=== PATIENT | female | born 1985 | race African-American/Black ===

== ENCOUNTER 2016-12-22 00:23 | Emergency (ER) | payer MEDICAID ==
[~2016-12-22 00:23] MED LIST: PRED20 PO; ZYRT10TA12 PO
[2016-12-22 00:24] VITALS: BP 132/79; PULSE 104; RESP 20; TEMP 98.2; O2SAT 99
[2016-12-22 01:20] LABS: BLOOD, URINE NEG (NEG); COMMENT (UR) CULTURE INDICATED; CULTURE IF INDICATED CULTURE INDICATED; GLUCOSE,URINE NEG (NEG); KETONE, URINE TRACE mg/dL (NEG); MUCUS URINE MANY /lpf (OCC); NITRITE,URINE NEG (NEG); SQUAMOUS EPITHELIAL CELL URINE 21 /hpf (0-5); URINE COLOR YELLOW (YELLW/STRAW)
[2016-12-22] MEDS ORDERED: MACR100C2 PO (01:23)
--- NOTE | 2016-12-22 01:23 | PD ---
HPI Chief Complaint: Complaint Time Seen by Provider: 00:47 Travel History International Travel<30 days: No Contact w/Intl Traveler<30days: No Traveled to known affect area: No History of Present Illness HPI 31-year-old female presents with burning when she urinates over the past couple of days. She denies any fever, vomiting, vaginal discharge, vaginal bleeding, back pain or other concurrent complaints. Quality is burning. Severity is with urination. She denies frequent urinary tract infections. PFSH Past Medical History Asthma: Yes Diminished Hearing: No Respiratory: Yes (CHILDHOOD ASTHMA) Influenza Vaccination: No ?: Not LMP: 11/27/2016 : 5 Para: 5 Past Surgical History Surgical History: No Previous Surgery Social History Alcohol Use: No Tobacco Use: No Substance Use: No Allergies-Medications (Allergen,Severity, Reaction): Coded Allergies: No Known Allergies (Unverified , 12/22/16) Reported Meds & Prescriptions Reported Meds & Active Scripts Active Macrobid (Nitrofurantoin Monoh/Nitrofur Macro) 100 Mg Cap 100 Mg PO BID 7 Days Review of Systems Except as stated in HPI: all other systems reviewed are Neg Physical Exam Narrative GENERAL: Well-nourished, well-developed patient. SKIN: Warm and dry. HEAD: Normocephalic and atraumatic. EYES: No injection or drainage. ENT: No nasal drainage noted. NECK: Supple, trachea midline. CARDIOVASCULAR: Regular rate and rhythm RESPIRATORY: No increased effort. No accessory muscle use. GASTROINTESTINAL: Abdomen soft, non-tender, nondistended. NEUROLOGICAL: Awake and alert. Motor and sensory grossly within normal limits. Normal speech. Data Data Last Documented VS Vital Signs Date Time Temp Pulse Resp B/P Pulse Ox O2 Delivery O2 Flow Rate FiO2 12/22/16 00:24 98.2 104 20 132/79 99 Orders Urinalysis - C+S If Indicated (12/22/16 00:48) Ed Urine Pregnancytest Poc (12/22/16 00:48) Urine Culture (12/22/16 01:00) Labs Laboratory Tests Test 12/22/16 01:00 Urine Color YELLOW Urine Turbidity HAZY Urine pH 6.0 Urine Specific [place] 1.029 Urine Protein 30 mg/dL Urine Glucose (UA) NEG mg/dL Urine Ketones TRACE mg/dL Urine Occult Blood NEG Urine Nitrite NEG Urine Bilirubin NEG Urine Urobilinogen 2.0 MG/DL Urine Leukocyte Esterase LARGE Urine WBC 11 /hpf Urine Squamous Epithelial 21 /hpf Cells Urine Mucus MANY /lpf Microscopic Urinalysis Comment CULTURE INDICATED MDM Medical Decision Making Medical Screen Exam Complete: Yes Emergency Medical Condition: Yes Medical Record Reviewed: Yes (past history confirmed) Differential Diagnosis UTI, cyst, Narrative Course Will check UA and test and reevaluate UA with UTI, test negative, all questions answered. Patient knows that follow up is incumbent on them and to return to the emergency room immediately if new or worsening symptoms develop. Patient given strict return precautions, vitals reviewed and are normal, agrees to further workup as an outpatient. Diagnosis Primary Impression: UTI (urinary tract infection) Qualified Code: N39.0 - Urinary tract infection without hematuria, site unspecified Patient Instructions: General Instructions Additional Instructions: return as needed, follow with primary for recheck this week, tylenol as needed for pain Med/Other Pt SpecificInfo: Prescription(s) given Scripts Nitrofurantoin Monohydrate Macrocrystals (Macrobid)100 Mg [id number] Mg PO BID 7 Days Prov:Jesenia Andersen MD 12/22/16 Disposition: DISCHARGE HOME Condition: Stable Jesenia Andersen MD Dec 22, 2016 01:23
== END 2016-12-22 01:39 | disposition home or self-care (01) ==
LOC: NEPC 00:23
DX: N39.0 Urinary tract infection, site not specified (principal); B96.89 Other specified bacterial agents as the cause of diseases classified elsewhere
CPT/HCPCS: 81001; 84703; 87086; 99283

== ENCOUNTER 2017-02-07 12:46 | Emergency (ER) | payer SELFPAY ==
[~2017-02-07] VITALS: Ht 177.8 cm; Wt 85.0 kg
[~2017-02-07 12:46] MED LIST changes: +MACR100C2 PO; -PRED20 PO; -ZYRT10TA12 PO
[2017-02-07 12:47] VITALS: BP 127/85; PULSE 91; RESP 14; TEMP 98.5; O2SAT 99
--- NOTE | 2017-02-07 13:11 | PD ---
HPI Chief Complaint: ENT Complaint Time Seen by Provider: 13:10 Travel History International Travel<30 days: No Contact w/Intl Traveler<30days: No Traveled to known affect area: No History of Present Illness HPI 31-year-old female presents to emergency Department with complaint of sore throat since yesterday. She denies lump in throat, unusual drooling, difficulty swallowing. Reports painful swallowing. Reports change in voice. Reports subjective fevers and chills. Has not taken her temperature cannot reports MAXIMUM TEMPERATURE. Denies cough, ear pain, nasal congestion. Reports headache. Denies abdominal pain. The patient is also requesting a test. She said she had her period 3 times last month but has been vomiting prior to her sore throat for approximately one week. She denies vomiting since yesterday. She took Tylenol last night for sore throat. No known allergies. History of asthma. No other modifying factors or associated signs and symptoms. PFSH Past Medical History Asthma: Yes Diminished Hearing: No Respiratory: Yes (CHILDHOOD ASTHMA) ?: Unknown LMP: UNKNOWN : 5 Para: 5 Social History Alcohol Use: No Tobacco Use: No Substance Use: No Allergies-Medications (Allergen,Severity, Reaction): Coded Allergies: No Known Allergies (Unverified , 02/07/17) Reported Meds & Prescriptions Reported Meds & Active Scripts Active Magic Mouthwash Pediatric/Adult Liq (Lidocaine/Diphenhydr/Alum/Mg/Simeth) 60 Ml Susp 5 Ml SWISH-SWAL Q3HR NEB PRN Each 5mL contains: Diphenydramine 4.5mg, Viscous Lidocaine 2% 10mg, Maalox Advanced Regular Strength 2.7ml Ibuprofen 800 Mg Tab 800 Mg PO Q6HR PRN Amoxicillin 500 Mg Cap 500 Mg PO BID 10 Days Macrobid (Nitrofurantoin Monoh/Nitrofur Macro) 100 Mg Cap 100 Mg PO BID 7 Days Review of Systems Except as stated in HPI: all other systems reviewed are Neg Physical Exam Narrative GENERAL: Well-nourished, well-developed female patient, in no acute distress; afebrile, nontoxic-appearing SKIN: Warm and dry. No rash. HEAD: Atraumatic. Normocephalic. EYES: Pupils equal and round at 3 mm with brisk reaction. No scleral icterus. No injection or drainage. PERRLA. ENT: Mucosa pink and dry. Pharynx with 2+ tonsils; with erythema, exudate, and edema. No Uvular edema. No uvular, palatal, or tonsillar deviation. Airway patent. Voice is hoarse. EARS: Bilateral pinnae and external canals appear within normal limits. Bilateral tympanic membranes without erythema, dullness or perforation.. NECK: Trachea midline. Anterior cervical lymphadenopathy and tenderness. CARDIOVASCULAR: Regular rate and rhythm. No murmur appreciated. RESPIRATORY: No accessory muscle use. Clear to auscultation. Breath sounds equal bilaterally. GASTROINTESTINAL: Abdomen soft, non-tender, nondistended. Hepatic and splenic margins not palpable. Bowel sounds are active 4 quadrants. MUSCULOSKELETAL: No obvious deformities. No clubbing. No cyanosis. No edema. NEUROLOGICAL: Awake and alert. Oriented 3. No obvious cranial nerve deficits. Motor grossly within normal limits. Normal speech. Moves all extremities. PSYCHIATRIC: Appropriate mood and affect; insight and judgment normal. Data Data Last Documented VS Vital Signs Date Time Temp Pulse Resp B/P Pulse Ox O2 Delivery O2 Flow Rate FiO2 02/07/17 12:47 98.5 91 14 127/85 99 Orders Ibuprofen (Motrin) (02/07/17 13:15) Group A Rapid Strep Screen (02/07/17 13:11) Strep Culture (Group A) (02/07/17 13:29) [facility] Medical Decision Making Medical Screen Exam Complete: Yes Emergency Medical Condition: Yes Medical Record Reviewed: Yes Differential Diagnosis Strep pharyngitis, viral pharyngitis, less likely peritonsillar abscess Narrative Course 31-year-old female with exudative pharyngitis. Patient is afebrile and nontoxic -appearing. She reports subjective fevers. Ibuprofen ordered. Rapid strep ordered. 1350: Rapid strep negative. Throat culture pending. I will prescribe antibiotics for exudative pharyngitis. Amoxicillin, Magic mouthwash, ibuprofen prescribed for home. Patient verbalizes understanding and agreement with treatment plan. Patient is medically cleared and stable for discharge. Discussed reasons to return to the emergency department. Instructed patient to follow up with primary care provider. Patient agrees with treatment plan. The patients vital signs are stable and the patient is stable for outpatient follow- up and treatment. Patient discharged home, stable and in no acute distress. Diagnosis Primary Impression: Exudative pharyngitis Referrals: Primary Care Physician Patient Instructions: General Instructions, Pharyngitis (ED) Departure Forms: Tests/Procedures, Work Release Enter return to work date: Feb 09, 2017 Additional Instructions: Take Antibiotics as prescribed and complete full course of antibiotics Get plenty of sleep/rest Rest your voice Drink plenty of fluids to prevent dehydration Use warm saltwater gargles to soothe throat pain Use an air humidifier/turn off ceiling fans Use throat lozenges as needed for sore throat Use ibuprofen or acetaminophen as needed to relieve pain and fever Follow-up with your primary care provider within 2-4 days Return immediately to the emergency department with worsening of symptoms Med/Other Pt SpecificInfo: Prescription(s) given Scripts Mvrzutsqircbodm-Tlbfqaqlo-Cnd-Alum-Simeth Liq (Magic Mouthwash Pediatric/Adult Liq)60 Ml Susp5 Ml SWISH-SWAL Q3HR NEB PRN (SORE THROAT) #60 ML Ref 0 Each 5mL contains: Diphenydramine 4.5mg, Viscous Lidocaine 2% 10mg, Maalox Advanced Regular Strength 2.7ml Prov:Nyla Weeks 02/07/17 Ibuprofen 800 Mg [id number] Mg PO Q6HR PRN (PAIN) #30 TAB Ref 0 Prov:Nyla Weeks 02/07/17 Amoxicillin 500 Mg Hsn400 Mg PO BID 10 Days Ref 0 Prov:Nyla Weeks 02/07/17 Disposition: 01 DISCHARGE HOME Condition: Stable Nyla Weeks Feb 07, 2017 13:11
[2017-02-07] MEDS ORDERED: IBUP800T23 PO ×2 (13:12→13:22)
[2017-02-07] MEDS ORDERED: AMOX500C PO (13:12)
[2017-02-07] MEDS ORDERED: MAGICPED SWISH-SWAL ×2 (13:12→13:22)
[2017-02-07] MEDS ORDERED: IBUPROFEN 800 MG TAB PO ONE (13:15)
== END 2017-02-07 14:07 | disposition home or self-care (01) ==
LOC: NETRI 12:46
DX: J02.0 Streptococcal pharyngitis (principal); B95.0 Streptococcus, group A, as the cause of diseases classified elsewhere; J45.909 Unspecified asthma, uncomplicated
CPT/HCPCS: 87081; 87880; 99283

== ENCOUNTER 2017-07-08 18:35 | Emergency (ER) | payer MEDICAID ==
[~2017-07-08] VITALS: Ht 177.8 cm; Wt 72.5 kg
[~2017-07-08 18:35] MED LIST changes: +AMOX500C PO; +IBUP800T23 PO; +MAGICPED SWISH-SWAL
[2017-07-08 18:36] VITALS: BP 155/84; PULSE 89; RESP 18; TEMP 98.8; O2SAT 99
--- NOTE | 2017-07-08 18:52 | PD ---
Physical Exam Date Seen by Provider: Jul 08, 2017 Time Seen by Provider: 18:50 Data Data Last Documented VS Vital Signs Date Time Temp Pulse Resp B/P (MAP) Pulse Ox O2 Delivery O2 Flow Rate FiO2 07/08/17 18:36 98.8 89 18 155/84 (107) 99 Room Air MDM Supervised Visit with ESTELA: No Narrative Course 31 YO F with complaint of right sided facial pain and swelling since last night. Patient thinks this is related to dental problems. LMP 06/27. Vitals reviewed. Patient seen in triage, awaiting bed placement. Beatrice Riggs Jul 08, 2017 18:52
[2017-07-08] MEDS ORDERED: PENI500T PO (21:33)
[2017-07-08] MEDS ORDERED: MAGICADU2 SWISH-SPIT (21:33)
[2017-07-08] MEDS ORDERED: IBUP800T23 PO (21:33)
--- NOTE | 2017-07-08 21:37 | PD ---
HPI Chief Complaint: Oral / Dental Pain or Problem Time Seen by Provider: 21:31 Travel History International Travel<30 days: No Contact w/Intl Traveler<30days: No Traveled to known affect area: No History of Present Illness HPI 31-year-old female presents for evaluation of dental pain. Symptoms started yesterday. The pain is a throbbing pain, constant, localized to the right mandibular molar region. Pain is worse with chewing with no alleviating factors. Denies fevers or chills. No other complaints. PFSH Past Medical History Asthma: Yes Diminished Hearing: No Respiratory: Yes (CHILDHOOD ASTHMA) ?: Not LMP: 06/27/17 : 5 Para: 5 Social History Alcohol Use: No Tobacco Use: No Substance Use: No Allergies-Medications (Allergen,Severity, Reaction): Coded Allergies: No Known Allergies (Unverified , 07/08/17) Reported Meds & Prescriptions Reported Meds & Active Scripts Active Ibuprofen 800 Mg Tab 800 Mg PO Q6HR PRN Magic Mouthwash Adult Liq (Multi-Ingredient Mouthwash/Gargle) 120 Ml Susp 10 Ml SWISH-SPIT ACHS Each 5mL contains: Nystatin 200,000units, Diphenhydramine 4.25mg, Viscous Lidocaine 10mg, Willis syrup 0.8 mL Penicillin V Potassium 500 Mg Tab 500 Mg PO Q8H 10 Days Review of Systems Except as stated in HPI: all other systems reviewed are Neg Physical Exam Narrative GENERAL: Well-developed well-nourished female in no acute distress SKIN: Warm and dry. HEAD: Atraumatic. Normocephalic. EYES: Pupils equal and round. No scleral icterus. No injection or drainage. ENT: No nasal bleeding or discharge. Mucous membranes pink and moist. The right mandibular molars are decayed and tender to palpation. There is some gingival edema surrounding them. There is no sublingual edema, no trismus. NECK: Trachea midline. No JVD. No lymphadenopathy or submandibular edema CARDIOVASCULAR: Regular rate and rhythm. No murmur appreciated. RESPIRATORY: No accessory muscle use. Clear to auscultation. Breath sounds equal bilaterally. Data Data Last Documented VS Vital Signs Date Time Temp Pulse Resp B/P (MAP) Pulse Ox O2 Delivery O2 Flow Rate FiO2 07/08/17 18:36 98.8 89 18 155/84 (107) 99 Room Air Orders Orders Penicillin V Potassium (Veetids) (07/08/17 21:45) Ibuprofen (Motrin) (07/08/17 21:45) MDM Medical Decision Making Medical Screen Exam Complete: Yes Emergency Medical Condition: Yes Medical Record Reviewed: Yes Differential Diagnosis Dental caries, [place] this, pericoronitis, periodontal abscess Narrative Course Examination and history are consistent with dental caries. The patient is being discharged with penicillin, ibuprofen, Magic mouthwash. Diagnosis Primary Impression: Dental caries Additional Instructions: Medication as prescribed. Avoid tobacco products. Follow-up with a dentist for definitive therapy. Med/Other Pt SpecificInfo: Prescription(s) given Scripts Ibuprofen (Ibuprofen) 800 Mg Tab 800 MG PO Q6HR Y for PAIN, #40 TAB 0 Refills Prov: Mandy Bernal DO 07/08/17 Dhqcnbyo-Tbqzaydwucdynbg-Lukcujutr Liq (Magic Mouthwash Adult Liq) 120 Ml Susp 10 ML SWISH-SPIT ACHS for Mouth sores, #120 ML 1 Refill Each 5mL contains: Nystatin 200,000units, Diphenhydramine 4.25mg, Viscous Lidocaine 10mg, Willis syrup 0.8 mL Prov: Madny Bernal DO 07/08/17 Penicillin V Potassium (Penicillin V Potassium) 500 Mg Tab 500 MG PO Q8H for Infection for 10 Days, TAB 0 Refills Prov: Mandy Bernal DO 07/08/17 Disposition: 01 DISCHARGE HOME Condition: Stable Brian Ricci Jul 08, 2017 21:37
[2017-07-08] MEDS ORDERED: PENICILLIN V POTASSIUM 500 MG TAB PO ONE (21:45)
[2017-07-08] MEDS ORDERED: IBUPROFEN 800 MG TAB PO ONE (21:45)
== END 2017-07-08 21:53 | disposition home or self-care (01) ==
LOC: NEPK 18:35
DX: K02.9 Dental caries, unspecified (principal); K08.89 Other specified disorders of teeth and supporting structures
CPT/HCPCS: 99283

== ENCOUNTER 2017-11-20 13:22 | Emergency (ER) | payer MEDICAID ==
[~2017-11-20 13:22] MED LIST changes: -AMOX500C PO; +IBUP1TAB7 PO; -IBUP800T23 PO; -MACR100C2 PO; +MAGICADU2 SWISH-SPIT; -MAGICPED SWISH-SWAL; +PENI500T PO
[2017-11-20 13:24] VITALS: BP 140/62; PULSE 83; RESP 20; TEMP 97.8; O2SAT 99
== END 2017-11-20 17:08 | disposition left against medical advice (07) ==
LOC: NED 13:22
DX: R10.9 Unspecified abdominal pain (principal); Z53.21 Procedure and treatment not carried out due to patient leaving prior to being seen by health care provider
CPT/HCPCS: 84703; 99281